=== PATIENT | male | born 1990 | race Hispanic/Latino ===

== ENCOUNTER 2017-05-11 20:42 | Emergency (ER) | payer SELFPAY ==
[2017-05-11] MEDS ORDERED: TETANUS/DIPHTHERIA TOXOID [ADULT] 0.5 ML VIAL IM ONE (22:01)
[2017-05-11] MEDS ORDERED: IBUPROFEN 600 MG TABLET ONE (22:01)
== END 2017-05-11 22:57 | disposition home or self-care (01) ==
LOC: EDH 20:42
DX: S91.331A Puncture wound without foreign body, right foot, initial encounter (principal); X58.XXXA Exposure to other specified factors, initial encounter; Y93.89 Activity, other specified; Y92.89 Other specified places as the place of occurrence of the external cause; Y99.8 Other external cause status
CPT/HCPCS: 73630; 90471; 90714